=== PATIENT | female | born 1960 | race Caucasian/White ===

== ENCOUNTER 2017-07-30 11:15 | Emergency (ER) | payer BC ==
[2017-07-30] MEDS: LIDOCAINE/MYLANTA 40 ML BTL PO (12:58)
== END 2017-07-30 13:21 | disposition home or self-care (01) ==
LOC: FTE 11:15
DX: K21.9 Gastro-esophageal reflux disease without esophagitis (principal)
CPT/HCPCS: 99283; Z7502